=== PATIENT | male | born 1940 | race Caucasian/White ===

== ENCOUNTER 2020-04-02 09:50 | Outpatient (CLI) | payer MEDICARE, OTHER, SELFPAY ==
--- NOTE | 2020-04-02 | CT_ITS ---
WS: [id number] CT neck w con* [id number] REASON FOR EXAM: SWELLING / NECK MASS IV CONTRAST ADMINISTERED: Omnipaque 300, 95 mL TOTAL EXAM DLP: All CT scans at [facility] use at least one of these dose optimization techniques: automat ed exposure control; mA and/or kV adjustment per patient size (includes targeted exams where dose is matched to clinical indication); or iterative reconstruction. FINDINGS: The paranasal sinuses were normal. The parotids as well as submaxillary glands show normal appearance. Along the left subcutaneous area is a cystic mass measures 8.98 mm and appears to be a subcutaneous c yst. The submiddle area was normal. No definite masses in the mandible were seen. The submandibular space appear to be normal. The carotid space was normal with no masses. The parapharyngeal and nasopharyngeal regions were normal. The tongue show no abnormalities. There is no gross lymphadenopathy seen or masses throughout the anterior compartment of the neck. The prevertebral space was normal. The supraglottic space was normal as well as the infraglottic region and the larynx show no masses. The right and left lobes of the thyroid were normal. No lymphadenopathy is seen. The supra clavicular area showed no masses. CT/CT neck w con* [id number] IMPRESSION: A small cystic appearing subcutaneous lesion is seen overriding the lobe of the left ear ,This appears to be a sebaceous cyst.
[2020-04-02 10:53] LABS: Blood Urea Nitrogen 13 mg/dL (8-23)
[2020-04-02] MEDS: iodixanol 320 mg/mL 100mL Btl IV (11:09)
== END 2020-04-02 09:51 | disposition home or self-care (01) ==
PROVIDERS: PCP Registered Nurse; Visit Provider Specialist
DX: R22.1 Localized swelling, mass and lump, neck (principal); K13.0 Diseases of lips
CPT/HCPCS: 70491; 82565; 84520; Q9967

== ENCOUNTER → 2021-03-09 09:20 | Outpatient (BNVA) | payer MEDICARE, OTHER, SELFPAY | PROVIDERS: PCP Registered Nurse; Visit Provider Registered Nurse | DX: Z00.00 Encounter for general adult medical examination without abnormal findings (principal); E78.5 Hyperlipidemia, unspecified; N40.0 Benign prostatic hyperplasia without lower urinary tract symptoms; K21.9 Gastro-esophageal reflux disease without esophagitis; I10 Essential (primary) hypertension; G47.00 Insomnia, unspecified | CPT/HCPCS: 80053; 80061; 83721; 84153; 85025 ==

== ENCOUNTER → 2021-11-07 11:44 | Outpatient (BNVA) | payer MEDICARE, SELFPAY | PROVIDERS: PCP Registered Nurse; Visit Provider Registered Nurse | DX: I10 Essential (primary) hypertension (principal) | CPT/HCPCS: 80053; 85025 ==

== ENCOUNTER 2022-01-18 09:44 | Outpatient (CLI) | payer MEDICARE, SELFPAY ==
--- NOTE | 2022-01-18 10:00 | USCV_ITS ---
Mendoza Montiel Age: 81 Gender: M : 1940 Exam Date: 01/18/2022 10:46 Ordering Phys: Eugene Patel M.D ([email or web address]) Technologist: Flaquito Nicole Exam Location: [facility] – [place] Indication: sob BP: 178 / 73 HR: 67 Rhythm: Sinus Technical Quality: Adequate MEASUREMENTS (Male / Female) Normal Values 2D ECHO LV Diastolic Diameter PLAX 4.3 cm 4.2 - 5.9 / 3.9 - 5.3 cm LV Systolic Diameter PLAX 3.2 cm IVS Diastolic Thickness 1.0 cm 0.6 - 1.0 / 0.6 - 0.9 cm IVS Systolic Thickness 1.3 cm LVPW Diastolic Thickness 1.0 cm 0.6 - 1.0 / 0.6 - 0.9 cm LVPW Systolic Thickness 1.3 cm LVOT Diameter 2.0 cm LV Ejection Fraction 2D Teich 50.0 % LV Ejection Fraction MOD 2C 54.9 % LV Ejection Fraction 2C AL 55.1 % LA Diameter 3.1 cm LA Width 2.6 cm LA Height 4.1 cm RA Width 3.0 cm RA Height 3.8 cm Aorta at Sinotubular Diameter 2.6 cm M-MODE Aortic Annulus Diameter 3.6 cm LA Ao Ratio MM 0.8 MV E Point Septal Separation 0.5 cm DOPPLER AV Peak Velocity 191.0 cm/s LVOT Peak Velocity 91.0 cm/s AV Area Cont Eq vti 1.9 cm squared AV Area Cont Eq pk 1.5 cm squared MV Area PHT 4.0 cm squared Mitral E to A Ratio 0.8 MV E' Velocity 51.0 cm/s Mitral E to MV E' Ratio 9.2 Mitral E to LV E' Lateral Ratio 7.7 Mitral E to LV E' Septal Ratio 11.5 TR Peak Velocity 259.9 cm/s TR Peak Gradient 27.0 mmHg TR Mean Velocity 202.3 cm/s TR Mean Gradient 17.2 mmHg TR Velocity Time Integral 64.9 cm RV Acceleration Time 0.1 s RV Ejection Time 0.2 s RV AcT/ET 0.4 FINDINGS Left Ventricle Normal left ventricular size, systolic function and wall thickness, with no regional wall motion abnormalities. Grade 1 diastolic dysfunction Right Ventricle The right ventricle is normal in size and function. Right Atrium The right atrium is normal in size. Left Atrium The left atrium is normal in size. Mitral Valve Structurally normal mitral valve without significant stenosis or prolapse. There is mild to moderate mitral regurgitation. Aortic Valve Aortic valve is thickened and calcified. Mild aortic stenosis with mean gradient across aortic valve of 8 mmHg and aortic valve area of 1.8 cm squared. No significant aortic regurgitation seen Tricuspid Valve Structurally normal tricuspid valve without significant stenosis. Mild regurgitation. Pulmonary artery systolic pressure is normal. Pulmonic Valve Structurally normal pulmonic valve without significant stenosis. There is no pulmonic regurgitation. Pericardium Normal pericardium without effusion. Aorta Normal ascending aorta dimension. CONCLUSIONS LV systolic function is normal with EF of 55-60% Grade 1 diastolic dysfunction Mild to moderate mitral regurgitation Aortic valve is thickened and calcified. Mild aortic stenosis with mean gradient across aortic valve of 8 mmHg and aortic valve area of 1.8 cm squared. Mild tricuspid regurgitation No comparison studies are available Eugene Patel MD (Electronically Signed) Final Date: 27 January 2022 11:43 S
== END 2022-01-18 09:45 | disposition home or self-care (01) ==
PROVIDERS: PCP Registered Nurse; Visit Provider Internal Medicine
DX: R06.02 Shortness of breath (principal); R07.9 Chest pain, unspecified; I08.3 Combined rheumatic disorders of mitral, aortic and tricuspid valves
CPT/HCPCS: 93306

== ENCOUNTER 2022-01-18 09:44 | Outpatient (CLI) | payer MEDICARE, SELFPAY ==
--- NOTE | 2022-01-18 10:45 | USCV_ITS ---
FredaMendoza quintanilla Age: 81 Gender: M : 1940 Exam Date: 01/18/2022 11:27 Ordering Phys: Ena RochaP PLASMA CENTER TECHNICIAN Technologist: Flaqutio Nicole [place] [facility] [place]: polyneuropathy Risk Factors: Previous Vascular Surgery: RIGHT LEFT BP: 171.0 / 79.00 BP: 154.0/ 71.00 0 0 Waveform Velocity (cm/s) Velocity (cm/s) Waveform Triphasic 88.1 Iliac Prox 69.8 Biphasic Biphasic 112.5 Iliac Mid 72.4 Biphasic Biphasic 113.6 Iliac Distal 100.9 Biphasic Biphasic 87.8 CYBER SECURITY SYSTEMS ENGINEER 94.7 Biphasic Biphasic 87.0 SFA Prox 88.4 Biphasic Biphasic 89.3 SFA Mid 71.8 Biphasic Biphasic SFA Dist Biphasic 97.9 61.4 Biphasic 74.6 POP 52.1 Biphasic POUNCER 308.7 Biphasic Biphasic 215.9 DPA 23.6 Biphasic 1.0 JOANA 1.1 FINDINGS Resting ABIs of 1.0 on the right and 1.1 on the left No Doppler flow signals in the right posterior tibial artery Elevated Doppler velocities in the right dorsalis pedis and left posterior tibial artery CONCLUSIONS 1. Normal resting ABIs bilaterally 2. 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 Elevated Doppler flow velocity, suggesting greater than 50% stenosis in the dorsalis pedis artery on the right side. 4. Abnormal Doppler flow velocity in the left posterior tibial artery suggesting greater than 50% stenosis Dr Ramos Erwin MD [facility] (Electronically Signed) Final Date: 20 January 2022 10:05 S
== END 2022-01-18 09:45 | disposition home or self-care (01) ==
PROVIDERS: PCP Registered Nurse; Visit Provider Registered Nurse
DX: G62.9 Polyneuropathy, unspecified (principal)
CPT/HCPCS: 93925

== ENCOUNTER → 2022-02-07 11:53 | Outpatient (BNVA) | payer MEDICARE, SELFPAY | PROVIDERS: PCP Registered Nurse; Visit Provider Internal Medicine | DX: I25.10 Atherosclerotic heart disease of native coronary artery without angina pectoris (principal); I10 Essential (primary) hypertension; Z95.1 Presence of aortocoronary bypass graft; Z79.82 Long term (current) use of aspirin; Z87.891 Personal history of nicotine dependence | CPT/HCPCS: 80048; 99214 ==

== ENCOUNTER → 2022-06-21 08:56 | Outpatient (BNVA) | payer MEDICARE, SELFPAY | PROVIDERS: PCP Registered Nurse; Visit Provider Registered Nurse | DX: I10 Essential (primary) hypertension (principal) | CPT/HCPCS: 80053; 80061; 81000; 85025 ==

== ENCOUNTER → 2022-06-26 12:23 | Outpatient (BNVA) | payer MEDICARE, SELFPAY | PROVIDERS: PCP Registered Nurse; Visit Provider Internal Medicine Cardiovascular Disease | DX: R42 Dizziness and giddiness (principal); I70.201 Unspecified atherosclerosis of native arteries of extremities, right leg; I25.10 Atherosclerotic heart disease of native coronary artery without angina pectoris; Z95.1 Presence of aortocoronary bypass graft; I10 Essential (primary) hypertension | CPT/HCPCS: 93225; 99213 ==

== ENCOUNTER 2022-07-11 06:00 | Outpatient (RCR) | payer MEDICARE, SELFPAY | END 2022-07-14 23:59 | disposition home or self-care (01) | LOC: SPT 06:00 | PROVIDERS: PCP Registered Nurse; Visit Provider Registered Nurse | DX: H81.10 Benign paroxysmal vertigo, unspecified ear (principal) | CPT/HCPCS: 95992; 97162 ==

== ENCOUNTER 2022-07-17 16:30 | Outpatient (CLI) | payer MEDICARE, SELFPAY ==
--- NOTE | 2022-07-17 17:00 | CT_ITS ---
WS: [id number] CT HEAD NONCONTRAST HISTORY: R42 - Dizziness and giddiness TECHNIQUE: Contiguous axial imaging performed through the brain in 2.5 mm imaging. Bone and soft tiss ue windows. Sagittal and coronal reformats reviewed. All CT scans at [facility] use at least one of these dose optimization techniques: automated exposure control; mA and/or kV adjustment per pa tient size (includes targeted exams where dose is matched to clinical indication); or iterative recon struction. DLP: 1075.78 mGy.cm COMPARISON: None available. No acute intracranial hemorrhage, midline shift or mass effect. Mild atrophy and moderate small vessel ischemic disease. Small vessel ischemic disease is confluent a round the ventricles and throughout the white matter. There are lacunar infarcts in the external cap sules bilaterally. Prior lacunar infarct RIGHT caudate head. Ventricles: Normal size with no hydrocephalus. Paranasal sinuses: As visualized are clear. Mastoid air cells: Well pneumatized. Calvarium and scalp: Skull is intact with no soft tissue edema or swelling. Small amount of cerumen in the RIGHT external auditory canal. CT/CT head wo con* [id number] IMPRESSION: 1. No acute intracranial hemorrhage or edema. 2. Mild atrophy with moderate small vessel ischemic changes and small lacunar infarcts as above.
== END 2022-07-17 16:31 | disposition home or self-care (01) ==
PROVIDERS: PCP Registered Nurse; Visit Provider Registered Nurse
DX: R42 Dizziness and giddiness (principal); G31.9 Degenerative disease of nervous system, unspecified; I67.82 Cerebral ischemia; I63.81 Other cerebral infarction due to occlusion or stenosis of small artery
CPT/HCPCS: 70450

== ENCOUNTER → 2022-09-19 12:43 | Outpatient (BNVA) | payer MEDICARE, SELFPAY | PROVIDERS: PCP Registered Nurse; Visit Provider Internal Medicine | DX: I10 Essential (primary) hypertension (principal); I25.10 Atherosclerotic heart disease of native coronary artery without angina pectoris; Z95.1 Presence of aortocoronary bypass graft; Z87.891 Personal history of nicotine dependence | CPT/HCPCS: 99214 ==

== ENCOUNTER 2022-12-01 13:29 | Outpatient (CLI) | payer MEDICARE, SELFPAY ==
--- NOTE | 2022-12-01 13:30 | USCV_ITS ---
Mendoza Montiel Age: 82 Gender: M : 1940 Exam Date: 12/01/2022 13:45 Ordering Phys: Eugene Patel M.D ([email or web address]) Technologist: Exam Location: [facility] – [place] Indication: HX CAD MR BP: 130 / 80 HR: 51 Rhythm: Sinus Technical Quality: Good MEASUREMENTS (Male / Female) Normal Values 2D ECHO LV Diastolic Diameter PLAX 5.2 cm 4.2 - 5.9 / 3.9 - 5.3 cm LV Systolic Diameter PLAX 2.8 cm IVS Diastolic Thickness 0.9 cm 0.6 - 1.0 / 0.6 - 0.9 cm IVS Systolic Thickness 1.2 cm LVPW Diastolic Thickness 1.2 cm 0.6 - 1.0 / 0.6 - 0.9 cm LVPW Systolic Thickness 1.2 cm LVOT Diameter 2.0 cm LV Ejection Fraction 2D Teich 73.2 % LV Ejection Fraction MOD 2C 62.2 % LV Ejection Fraction 2C AL 60.9 % LA Diameter 4.1 cm IVC Diameter 3.1 cm M-MODE Aortic Annulus Diameter 3.7 cm LA Ao Ratio MM 1.0 MV E Point Septal Separation 1.2 cm DOPPLER AV Peak Velocity 262.7 cm/s LVOT Peak Velocity 89.0 cm/s AV Area Cont Eq vti 1.1 cm squared AV Area Cont Eq pk 1.1 cm squared MV E' Velocity 12.0 cm/s TR Peak Velocity 321.3 cm/s TR Peak Gradient 41.3 mmHg TV Peak E Velocity 97.0 cm/s Right Atrial Pressure 3.0 mmHg Pulmonary Artery Systolic Pressu 44.3 mmHg RV Acceleration Time 0.2 s FINDINGS Left Ventricle Left ventricle is normal in size. LV systolic function is normal with EF of 55-60%. No regional wall motion abnormalities are seen. Right Ventricle Normal in size and function Right Atrium Normal in size Left Atrium Normal in size Mitral Valve Structurally normal mitral valve. Moderate to severe mitral regurgitation. Aortic Valve Aortic valve is thickened and calcified. Mild aortic stenosis with aortic valve area of 1.05 cm2 with mean gradient of 12.5 mmHg across aortic valve. Tricuspid Valve Mild tricuspid regurgitation. RVSP is 45-50 mmHg. This is consistent with moderate pulmonary hypertension. Pulmonic Valve Not well-visualized. Mild pulmonic regurgitation. Pericardium Normal Aorta Normal size IVC Appears to be normal CONCLUSIONS LV systolic function is normal with EF of 55 to 60%. Moderate to severe mitral regurgitation Aortic valve is thickened and calcified. Mild aortic stenosis. Mild tricuspid regurgitation Moderate pulmonary hypertension Mild pulmonic regurgitation Compared to prior echocardiogram from 01/18/2022, mitral regurgitation has worsened and is moderate to severe now and patient has moderate pulmonary hypertension. Eugene Patel MD (Electronically Signed) Final Date: 02 December 2022 13:13 S
== END 2022-12-01 13:30 | disposition home or self-care (01) ==
PROVIDERS: PCP Registered Nurse; Visit Provider Internal Medicine
DX: R06.02 Shortness of breath (principal); R07.9 Chest pain, unspecified; I35.0 Nonrheumatic aortic (valve) stenosis; I27.20 Pulmonary hypertension, unspecified; I07.1 Rheumatic tricuspid insufficiency; I34.0 Nonrheumatic mitral (valve) insufficiency
CPT/HCPCS: 93306

== ENCOUNTER → 2022-12-28 07:59 | Outpatient (BNVA) | payer MEDICARE, SELFPAY | PROVIDERS: PCP Registered Nurse; Visit Provider Thoracic Surgery (Cardiothoracic Vascular Surgery) | DX: I34.0 Nonrheumatic mitral (valve) insufficiency (principal); Z87.891 Personal history of nicotine dependence | CPT/HCPCS: 99203 ==

== ENCOUNTER → 2023-05-07 10:37 | Outpatient (BNVA) | payer MEDICARE, SELFPAY | PROVIDERS: PCP Registered Nurse; Visit Provider Podiatrist Foot & Ankle Surgery | DX: G62.9 Polyneuropathy, unspecified (principal); M79.671 Pain in right foot; M79.672 Pain in left foot | CPT/HCPCS: 73630; 99204 ==

== ENCOUNTER 2023-06-05 11:57 | Outpatient (CLI) | payer MEDICARE, SELFPAY ==
--- NOTE | 2023-06-05 12:15 | USCV_ITS ---
Mendoza Montiel Age: 83 Gender: M : 1940 Exam Date: 06/05/2023 12:35 Ordering Phys: Eugene Patel M.D ([email or web address]) Technologist: Eleonora Luevano [place] [facility] [place]: MR BP: / HR: 57 Rhythm: Sinus Technical Quality: Adequate MEASUREMENTS (Male / Female) Normal Values 2D ECHO LV Chamber Size 3.6 cm RV Chamber Size 3.0 cm LVOT Diameter 2.1 cm LV Ejection Fraction MOD 2C 58.7 % LV Ejection Fraction 2C AL 58.7 % LA Diameter 3.9 cm LA Width 3.4 cm LA Height 4.0 cm RA Width 2.4 cm RA Height 4.0 cm Aorta at Sinotubular Diameter 3.0 cm IVC Diameter 1.3 cm M-MODE Aortic Annulus Diameter 3.1 cm LA Ao Ratio MM 1.3 MV E Point Septal Separation 0.4 cm DOPPLER AV Peak Velocity 187.0 cm/s LVOT Peak Velocity 91.0 cm/s AV Area Cont Eq vti 1.6 cm squared AV Area Cont Eq pk 1.7 cm squared MV Area PHT 2.0 cm squared Mitral E to A Ratio 0.8 MV E' Velocity 44.0 cm/s Mitral E to MV E' Ratio 8.6 Mitral E to LV E' Lateral Ratio 8.2 Mitral E to LV E' Septal Ratio 8.9 TR Peak Velocity 270.3 cm/s TR Peak Gradient 29.2 mmHg TR Mean Velocity 200.6 cm/s TR Mean Gradient 17.8 mmHg TR Velocity Time Integral 73.5 cm TV Peak E Velocity 64.0 cm/s Right Atrial Pressure 3.0 mmHg Pulmonary Artery Systolic Pressu 32.2 mmHg RV Acceleration Time 0.1 s RV Ejection Time 0.3 s RV AcT/ET 0.4 FINDINGS Left Ventricle Left ventricle is normal size. LV systolic function is normal with EF of 55-60%. No regional wall motion abnormalities are seen. Grade 1 diastolic dysfunction Right Ventricle Normal in size and function Right Atrium Normal in size Left Atrium Normal in size Mitral Valve Structurally normal mitral valve. Moderate mitral regurgitation. Aortic Valve Aortic valve is thickened and calcified. Mild aortic stenosis with aortic valve area of 1.58cm2 and mean gradient across aortic valve of 8.3mmHg. Tricuspid Valve Mild tricuspid regurgitation. Pulmonary artery systolic pressure is normal Pulmonic Valve Not well visualized Pericardium Normal Aorta Normal in size IVC Appears to be normal CONCLUSIONS LV systolic function is normal with EF of 55-60% Grade 1 diastolic dysfunction Moderate mitral regurgitation Mild aortic stenosis Mild tricuspid regurgitation. Compared to prior echocardiogram from 12/21/2022, no significant changes are seen Eugene Patel MD (Electronically Signed) Final Date: 18 June 2023 11:30 S
== END 2023-06-05 11:58 | disposition home or self-care (01) ==
PROVIDERS: PCP Registered Nurse; Visit Provider Internal Medicine
DX: R06.02 Shortness of breath (principal); R07.9 Chest pain, unspecified; I34.0 Nonrheumatic mitral (valve) insufficiency; I35.8 Other nonrheumatic aortic valve disorders; I35.0 Nonrheumatic aortic (valve) stenosis; I07.1 Rheumatic tricuspid insufficiency; I27.20 Pulmonary hypertension, unspecified; I37.1 Nonrheumatic pulmonary valve insufficiency
CPT/HCPCS: 93306

== ENCOUNTER → 2023-06-19 13:39 | Outpatient (BNVA) | payer MEDICARE, SELFPAY | PROVIDERS: PCP Registered Nurse; Visit Provider Internal Medicine | DX: I10 Essential (primary) hypertension (principal); I25.10 Atherosclerotic heart disease of native coronary artery without angina pectoris; Z95.1 Presence of aortocoronary bypass graft; Z87.891 Personal history of nicotine dependence | CPT/HCPCS: 99214 ==

== ENCOUNTER → 2023-10-15 13:13 | Outpatient (BNVA) | payer MEDICARE, SELFPAY | PROVIDERS: PCP Registered Nurse; Visit Provider Podiatrist Foot & Ankle Surgery | DX: G57.93 Unspecified mononeuropathy of bilateral lower limbs; G62.9 Polyneuropathy, unspecified; M79.671 Pain in right foot; M79.672 Pain in left foot | CPT/HCPCS: 99213 ==

== ENCOUNTER → 2023-11-20 09:55 | Outpatient (BNVA) | payer MEDICARE, SELFPAY | PROVIDERS: PCP Registered Nurse; Visit Provider Registered Nurse | DX: I10 Essential (primary) hypertension (principal); E78.5 Hyperlipidemia, unspecified; E55.9 Vitamin D deficiency, unspecified; E11.9 Type 2 diabetes mellitus without complications; N39.0 Urinary tract infection, site not specified; Z00.00 Encounter for general adult medical examination without abnormal findings; A49.9 Bacterial infection, unspecified; G57.90 Unspecified mononeuropathy of unspecified lower limb | CPT/HCPCS: 80053; 80061; 81000; 82306; 85025; 87086 ==

== ENCOUNTER 2024-02-06 11:14 | Outpatient (CLI) | payer MEDICARE, SELFPAY ==
--- NOTE | 2024-02-06 12:00 | USCV_ITS ---
Mendoza Montiel Age: 83 Gender: M : 1940 Exam Date: 02/06/2024 11:50 Ordering Phys: Eugene Patel M.D ([email or web address]) Technologist: GUANAKITO [place] [facility] [place]ication: AORTIC STENOSIS BP: 137 / 68 HR: 66 Rhythm: Sinus Technical Quality: Adequate MEASUREMENTS (Male / Female) Normal Values 2D ECHO LV Diastolic Diameter PLAX 4.8 cm 4.2 - 5.9 / 3.9 - 5.3 cm IVS Diastolic Thickness 1.0 cm 0.6 - 1.0 / 0.6 - 0.9 cm IVS Systolic Thickness 1.6 cm LVPW Diastolic Thickness 1.8 cm 0.6 - 1.0 / 0.6 - 0.9 cm LVPW Systolic Thickness 2.8 cm LVOT Diameter 2.0 cm LV Ejection Fraction 2D Teich 68.3 % LV Ejection Fraction MOD 2C 54.5 % LV Ejection Fraction 2C AL 55.8 % LA Diameter 4.0 cm RA Systolic Volume 4C AL 30.7 ml RA Systolic Volume 4C MOD 30.1 ml LA Sys Volume AL 21.1 cm cubed Aorta at Sinotubular Diameter 2.5 cm M-MODE LA Ao Ratio MM 0.8 AV Cusp Separation MM 1.0 cm DOPPLER AV Peak Velocity 192.0 cm/s LVOT Peak Velocity 68.0 cm/s AV Area Cont Eq vti 1.2 cm squared AV Area Cont Eq pk 1.1 cm squared MV Peak Velocity 115.0 cm/s MV Area PHT 3.7 cm squared Mitral E to A Ratio 0.7 TR Peak Velocity 260.5 cm/s TR Peak Gradient 27.1 mmHg TR Mean Velocity 205.0 cm/s TR Mean Gradient 19.2 mmHg TR Velocity Time Integral 75.8 cm TV Peak E Velocity 46.0 cm/s Right Atrial Pressure 3.0 mmHg Pulmonary Artery Systolic Pressu 30.1 mmHg PV Peak Velocity 86.0 cm/s RV Ejection Time 0.3 s FINDINGS Left Ventricle Left ventricle is normal in size. LV systolic function is normal with EF of 50-55%. No regional wall motion abnormalities are seen. Right Ventricle Normal in size and function Right Atrium Normal in size Left Atrium Normal in size Mitral Valve Structurally normal mitral valve. Moderate mitral regurgitation. Aortic Valve Aortic valve is thickened. Mild aortic stenosis with aortic valve area 1.2 cm squared and mean gradient of 10 mmHg. Tricuspid Valve Mild tricuspid regurgitation. Pulmonary artery systolic pressure is normal. Pulmonic Valve Trace pulmonic regurgitation. Pericardium Normal Aorta Normal in size IVC Appears to be normal CONCLUSIONS LV systolic function is normal with EF 50-55% Moderate mitral regurgitation Mild aortic stenosis. Mild tricuspid regurgitation Trace pulmonic regurgitation Compared to prior echocardiogram from 05/2023 no significant changes are seen Eugene Patel MD (Electronically Signed) Final Date: 09 February 2024 22:42 S
== END 2024-02-06 11:15 | disposition home or self-care (01) ==
LOC: RAD 11:17
PROVIDERS: PCP Registered Nurse; Visit Provider Internal Medicine
DX: I08.3 Combined rheumatic disorders of mitral, aortic and tricuspid valves (principal)
CPT/HCPCS: 93306

== ENCOUNTER → 2024-03-18 12:21 | Outpatient (BNVA) | payer MEDICARE, SELFPAY | PROVIDERS: PCP Registered Nurse; Visit Provider Internal Medicine | DX: I10 Essential (primary) hypertension (principal); M79.606 Pain in leg, unspecified; R07.9 Chest pain, unspecified; I25.10 Atherosclerotic heart disease of native coronary artery without angina pectoris; Z95.1 Presence of aortocoronary bypass graft; Z87.891 Personal history of nicotine dependence | CPT/HCPCS: 99214 ==

== ENCOUNTER 2024-04-21 08:31 | Outpatient (CLI) | payer MEDICARE, SELFPAY ==
--- NOTE | 2024-04-21 | ECG_ITS ---
[facility] Test Date: 2024-04-21 Pat Name: Mendoza Montiel Department: Room: Gender: Male Day Care Assistant: : 1940 Requested By: Eugene Patel Order Number: [id number] Maura MD: Ramos Erwin M.D. 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 The baseline heart was 60 bpm with a blood pressue of 178/71 mm of Hg Lexiscan was infused over a period of 20 seconds. A total of 0.4 milligrams of Lexiscan was infused. The stress phase was continued for a total of 5 minutes. Heart rate at the end of the stress phase was 71 bpm with a blood pressure 146/67 mm of Hg. The EKG at the peak infusion revealed some nonspecific ST changes in the inferior and anterolateral leads.. Sestamibi was injected 20 seconds after the Lexiscan infusion. Heart rate at the end of the recovery phase was 74 bpm with a blood pressure of 143/58 mm of Hg. CONCLUSION: 1. No significant EKG changes with the LexiScan infusion 2. No LexiScan induced chest pain or cardiac arrhythmia 3. Normal blood pressure and heart rate response 4. Sestamibi/sestamibi perfusion scan pending; see separate report. Electronically Signed On 04-26-2024 13:56:33 CDT by Ramos Erwin M.D. [id number]
[2024-04-21 08:51] VITALS: BMI 22.8
--- NOTE | 2024-04-21 09:01 | NMCV_ITS ---
NM tahir perf SPECT r/s* [id number] Mendoza Montiel Age: 84 Gender: M : 1940 Exam Date: 04/21/2024 09:01 Ordering Phys: Eugene Patel M.D ([email or web address]) Technologist: ADELSO Saleem Exam Location: [facility] Indications: CP, SOB STRESS TEST Please see separate stress test report [facility] for full findings IMAGE PROTOCOL Rest/Stress 1 Lexiscan Day Radiopharmaceutical Dose (mCi) Administration Site Administered by Rest: Tc-99m 11.0 IV ADELSO aSleem Sestamibi Stress:Tc-99m 32.8 IV ADELSO Saleem Sestamibi Rest: 21-Apr-2024 60 Discovery 630 Stress: 21-Apr-2024 30 Discovery 630 0.4mg Lexiscan. Images obtained in supine and prone position. SPECT RESULTS Technical Quality: Good Raw Data Analysis: Normal Image Corrections: No attenuation or motion correction applied Summed Stress Score: 13 Summed Rest Score: 6 Summed Difference Score: 7 PERFUSION FINDINGS Moderate area of moderate to severely decreased tracer uptake involving the basal and mid inferior, inferolateral basal, mid and apical inferior; basal and mid inferolateral and apical lateral segments with a significant reversibility in these regions FUNCTIONAL RESULTS (calculated via Gated SPECT) Stress Image LV EF (%): 65 Stress EDV (mL):97 TID: 1.16 Stress ESV (mL):34 FUNCTIONAL FINDINGS: Segmental wall motion analysis revealing no gross wall motion abnormalities IMPRESSIONS 1. Myocardial perfusion imaging revealing moderate area of moderate to severely decreased tracer uptake involving the inferior, inferolateral and apical regions with a significant reversibility suggesting myocardial scarring with ischemia in distribution of the right coronary artery/circumflex artery. 2. Normal LV ejection fraction 65%. 3. LV wall motion analysis revealing no gross wall motion abnormalities. 4. Normal LV volume 5. Slightly elevated transient ischemic dilatation ratio 1.16 also may suggest endocardial ischemia No similar previous studies are available for comparison Dr Ramos Erwin MD [facility] (Electronically Signed) Final Date: 21 April 2024 22:17 S
[2024-04-21] MEDS: regadenoson 0.4 Mg/5 ml Syringe 0.400000000000000022 MG IVP (10:45)
[2024-04-21 11:02] VITALS: BP 148/65; PULSE 72
== END 2024-04-21 08:32 | disposition home or self-care (01) ==
PROVIDERS: PCP Registered Nurse; Visit Provider Internal Medicine
DX: R07.9 Chest pain, unspecified (principal); R06.02 Shortness of breath; R94.39 Abnormal result of other cardiovascular function study
CPT/HCPCS: 36415; 78452; 93017; 96374; A9500; J2785

== ENCOUNTER 2024-04-25 10:37 | Outpatient (CLI) | payer MEDICARE, SELFPAY ==
--- NOTE | 2024-04-25 11:15 | USCV_ITS ---
Mendoza Montiel Age: 84 Gender: M : 1940 Exam Date: 04/25/2024 10:44 Ordering Phys: Eugene Patel M.D ([email or web address]) Technologist: SCOTT Exam Location: [facility] [place] Indication: LEG PAIN Risk Factors: Previous Vascular Surgery: RIGHT LEFT BP: 155.0 / 66.00 BP: 146.0/ 63.00 0 0 Waveform Velocity (cm/s) Velocity (cm/s) Waveform Biphasic 94.7 Iliac Prox 77.3 Triphasic Biphasic 98.3 Iliac Mid 79.3 Triphasic Biphasic 109.4 Iliac Distal 71.6 Triphasic Biphasic 100.0 DIRECTOR OF FINANCIAL AID 154.0 Triphasic Biphasic 46.0 SFA Prox 118.0 Triphasic Biphasic 90.0 SFA Mid 131.0 Triphasic Biphasic 71.0 SFA Dist 115.0 Triphasic Biphasic 48.0 POP 61.0 Biphasic Biphasic 69.0 SIEVE REPAIRER 39.0 Biphasic Biphasic 128.0 DPA 117.0 Biphasic 1.2 JOANA 1.0 FINDINGS ABIs based on DPA bilat due to PTAs being noncompressible Minimal plaque send intimal thickening in the right common carotid iliac, femoral, and popliteal arteries. Mild to moderate plaque at the left common femoral artery intimal thickening and minimal plaques in the iliac, femoral./And popliteal arteries. Noncompressible dorsalis pedis arteries bilaterally Resting JOANA 1.2 on the right and 1.0 on the left CONCLUSIONS Normal resting ABIs with respect to the posterior tibial arteries bilaterally Noncompressible dorsalis pedis arteries bilaterally Mild to moderate plaque in the left common femoral artery with minimal plaque in the right common femoral artery Features of extensive arterial sclerosis No significant stenosis, based on the above findings Dr Ramos Erwin MD [facility] (Electronically Signed) Final Date: 25 April 2024 20:11 S
== END 2024-04-25 10:38 | disposition home or self-care (01) ==
LOC: RAD 10:38
PROVIDERS: PCP Registered Nurse; Visit Provider Internal Medicine
DX: I65.23 Occlusion and stenosis of bilateral carotid arteries (principal); I70.203 Unspecified atherosclerosis of native arteries of extremities, bilateral legs; M79.606 Pain in leg, unspecified
CPT/HCPCS: 93925

== ENCOUNTER 2024-05-08 08:46 | Outpatient (CLI) | payer MEDICARE, SELFPAY ==
--- NOTE | 2024-05-08 09:00 | XACV_ITS ---
Exam Room: 2 Ht: 180 cm Wt: 74 kg BSA: 1.93 m2 Gender: Male : 1940 Any Known Allergies: No known allergies Exam Priority: Routine Procedure(s): Procedure Description: Diagnostic procedure Procedure Description: Left Heart Catheterization Procedure Description: Left ventriculography Procedure Description: Venous Graft Catheterization Procedure Description: JAMES Graft Catheterization Procedure Description: Coronary Angiography Diagnostic Cath Status: Elective Diagnostic Findings * INDICATION: 84 year old man with PMH of hypertension, CAD s/p CABG, who has been having chest pain CCS class III angina and abnormal stress test is here for coronary angiogram. * Left Main to Proximal Left Anterior Descending: subtotal occlusion, GARCÍA: 1 flow. * Proximal Left Anterior Descending: chronic total occlusion, GARCÍA: 0 flow. * Proximal Right Coronary Artery: chronic total occlusion, GARCÍA: 0 flow. * BYPASS Grafts: SVG to RCA is patent however after touchdown, there is diffuse severe disease. SVG to OM is patent. After touchdown there is moderate disease in the habematolel vessel. JAMES to LAD is patent. At touchdown there is mild to moderate disease.. * Proximal Circumflex: total occlusion, GARCÍA: 0 flow. Conclusions 1. Severe multivessel CAD. SVG to RCA is patent but after touchdown has severe diffuse disease. This is the culprit vessel for patient's symptoms. 2. Patient has prior CABG. 3. Normal left ventricular systolic function. Ejection fraction of 55%. Recommendations * Aggressive medical therapy and up-titration of antianginal agents. * Risk factor modification. * Outpatient cardiology follow up in 4 weeks. Interventional RX Recommendation: medical therapy and/or counseling Diagnostic RX Recommendation: medical therapy and/or counseling Ventriculography Ejection Fraction: 55.0 % Pressures Phase:Rest AO : 130 / 78 ( 103 ) @ 12:02:00 PM 120 / 75 ( 97 ) @ 12:04:00 PM 161 / 55 ( 96 ) @ 12:12:00 PM 163 / 57 ( 96 ) @ 12:12:00 PM LV : 160 / -21 / 13 @ 12:11:00 PM 158 / -20 / 15 @ 12:12:00 PM 158 / -19 / 15 @ 12:12:00 PM Valves Phase:DefaultPhase AV : 0.0 @ 11:21:47 AM AV Mean Gradient: 0.0 @ 11:21:47 AM 0.0 @ 11:21:47 AM Clinical Evaluation EBL: 5mL-10mL Procedural Details Pre-Procedure Time Out. Identified patient by full name and date of as verbalized by the patient/guarantor. Does the consent match the physician's order: Yes. Accurate & Complete Informed Consent: Yes. Inpatient/Outpatient History & Physical on Chart: Yes. If H&P is completed, is and addenduem needed: No; If yes, is the addendum complete: N/A. Relevant Radiology Images available: Yes. Visualize and Verify Site with Patient/Guarantor: N/A. Pre-op teaching completed and patient verbalized understanding. The risks, benefits, and alternatives of sedation and/or procedure were discussed by physician. The patient agrees to continue. Procedure started. [facility] Clinical Fraility Score: 3: Managing Well. 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 Chest Pain Symptom Assessment: Typical Angina Symptoms. Physician arrived. Physician scrubbed in. Immediate Pre-Procedure Time Out. Correct Patient: Yes; Correct Procedure: Yes; Correct Site: Yes; Correct Patient Position: Yes; Correct Supplies: Yes; Dried Flammable Prep: Yes; Blood Products Available: Yes;. Lidocaine 1% infiltrated to the right groin. Current Diagnosis : Chest Pain. Arterial access obtained with micropuncture set. A 5 anguillan JL4 catheter in over wire. Multiple views taken of left coronary artery. Catheter removed over the standard wire. A 5 anguillan JR4 catheter in over wire. Multiple views taken of right coronary artery. SVG's to OM visualized and patent. SVG's to RCA visualized and patent. JAMES to LAD visualized. Catheter removed over the standard wire. A 5 anguillan Angled Pig catheter in over wire. EDP Sample taken: LV 160/-22,13; HR: 65 BPM; SpO2: 99%. LV gram performed in [place]Y @ 10 mL/second for a total of 30 mL. EDP Sample taken: LV 158/-21,15; HR: 63 BPM; SpO2: 100%. Pullback taken: LV 158/-20,15; AO 161/55(96); Mean: 0mmHg, Peak to Peak: 0mmHg, SEP: 14sec/min; HR: 64 BPM; SpO2: 100%. Catheter removed over the standard wire. A Right femoral angiogram was performed to determine safe placement of closure device. A Mynx was successful obtaining hemostatsis at the Right Femoral artery insertion site. Post Procedure: Pulses reassessed and unchanged. PERRLA. 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 No VTE prophylaxis required. Medication's Wasted: Lidocaine 1% = 10 mL. Medication's Wasted: Heparin = 1000 units. Medication's Wasted: Other = Fentanyl 75 mcg. Total IV fluids: 30 mL. Vital chart was stopped. Complications: None. Estimated blood loss: 5mL-10mL. Responsiveness - Normal response to verbal stimuli; alert and oriented, PERRLA. Airway - Unaffected, no intervention required; spontaneous ventilation. Circulation: W/N/L, pulses unchanged. Nausea/Vomiting: No. Procedure completed. Patient transferred by bed to CPRU. Access Site Site: Right Femoral artery Sheath Size: 6 Fr Hemostasis Method: Mynx Hemostasis Success: Successful Procedure Medications Start: 10:53 AM Stop: 10:53 AM Medication: Versed 1 mg and Fentanyl 25 mcg Amount: 1 Route: I.V. Start: 11:00 AM Stop: 11:00 AM Medication: Versed Amount: 1 mg Route: I.V. I, the attending physician, have reviewed and verified all procedure medications. Yes, all medications given per verbal order History/Risk Factors Hypertension: Yes Dyslipidemia: Yes Peripheral Arterial Disease (PAD): No Myocardial Infarction (MN): No Obesity: No Renal Disease: No Tobacco Use: Former Prior Interventions PCI: No CABG: Yes Valve Surgery: No Report Signatures Finalized by Eugene Patel MD on 05/22/2024 05:47 PM
[2024-05-08 09:15] VITALS: BP 166/74; PULSE 76; RESP 16; TEMP 36.7; O2SAT 99; BMI 22.8
[2024-05-08 09:17] LABS: Basophils # 0.1 10^3/uL (0.0-0.1); Eosinophils # 0.5 10^3/uL (0.0-0.8); Eosinophils % 5.6 %; Hematocrit 44.6 % (37-53); Lymphocytes # 2.5 10^3/uL (0.8-4.8); Lymphocytes % 28.3 %; Mean Corpuscular HGB Conc 34.1 g/dL (30-55); Mean Corpuscular Hemoglobin 31.6 pg (27-33); Mean Corpuscular Volume 92.7 fl (82-101); Mean Platelet Volume 9.9 fL (7.4-10.4); Monocytes # 0.9 10^3/uL (0.2-0.9); Monocytes % 10.5 %; Neutrophils # 4.83 10^3/uL (1.8-7.7); Neutrophils % 54.3 %; Nucleated Red Blood Cells % 0 %; Platelet Count 233 10^3/cmm (157-399); Red Blood Count 4.81 10^6/uL (3.85-5.65); Red Cell Distribution Width 12.8 % (12.1-15.1); White Blood Count 8.91 10^3/uL (3.29-11.43)
[2024-05-08] MEDS: diphenhydrAMINE 50 mg Capsule PO (09:24)
[2024-05-08 09:35] LABS: Anion Gap 13.7 (5-19); Blood Urea Nitrogen 18 mg/dL (8-23); Calcium 9.3 mg/dL (8.5-10.5); Carbon Dioxide 29 mmol/L (22-29); Chloride 104 mmol/L (98-107); Creatinine Clr Calc Pharmacy 65.9156; Glucose 122 mg/dL (65-115); Osmolality Calculated 299 mOsm/kg (285-295); Potassium 3.7 mmol/L (3.5-5.1); Sodium 143 mmol/L (136-145)
--- NOTE | 2024-05-08 10:52 | P.HP_ITS ---
Same Day Surgery H&P Indication for Procedure/HPI DATE OF PROCEDURE: May 08, 2024 CHIEF COMPLAINT/INDICATIONFOR SURGICAL PROCEDURE: CCS Class III angina/Abnormal stress test PREOP DIAGNOSIS: CCS Class III angina/Abnormal stress test PLANNED PROCEDURE: Operation Date: 05/08/24 10:00 Proposed Procedures p Cardiac Catheterization - [facility] w/wo LV & Coros(Left) - Eugene Patel M.D Possible PCI 84 year old man with PMH of hypertension, CAD s/p CABG, who has been having chest pain CCS class III angina and abnormal stress test is here for coronary angiogram. Medications/Allergies* Home Medications Medication Instructions Recorded Confirmed Type aspirin 81 mg tablet,delayed 81 mg PO DAILY 12/24/19 05/07/24 History release (Adult Aspirin Regimen) Allergies/Adverse Reactions Allergy/AdvReac Type Severity Reaction Status Date / Time No Known Allergies Allergy Verified 05/07/24 11:16 Current Medications: Generic Name Dose Route Start Last Admin Trade Name Freq PRN Reason Stop Dose Admin Sodium Chloride 1,000 mls @ 50 mls/hr 05/08/24 09:00 05/08/24 09:25 Sodium Chloride 0.9% IV 05/09/24 04:59 Not Given .Q20H ONE Pertinent History/Comorbid Conditions* Medical History (Updated 05/06/24 @ 13:50 by GOKUL Wu) Wears hearing aid in both ears Hyperlipidemia, unspecified Hypothyroidism Dizziness Insomnia, unspecified GERD without esophagitis BPH (benign prostatic hyperplasia) Seasonal allergies Surgical History (Updated 05/03/23 @ 13:57 by GOKUL Kenney) History of tonsillectomy S/P triple vessel bypass 1997 Dr Linares Social History Smoking and tobacco/nicotine status: former use of tobacco/nicotine (stopped at age 46) Quit status (tobacco/nicotine): has quit using Year quit tobacco: 1979 Alcohol intake: never Substance/Drug Use: never Adopted: No Caregiver/support person: Yes Lives independently: No Household members: spouse Marital status: Current occupational status: retired Sexually active: Yes Do you think of yourself as: Straight/Heterosexual Current gender identity: Male Pertinent Exam Findings alert, oriented x 3, clear to auscultation bilaterally and regular rate & rhythm Conscious Sedation Assessment PATIENT ASSESSED PRIOR TO SEDATION, WITH NO CHANGE NOTED: Yes AIRWAY EVAL/ANESTHESIA PLAN: normal airway, ASA III, Local Anesthesia, Risks, benefits & alternatives of sedation and/or procedure discussed and Patient agrees to continue as planned Recommendations Surgery/Procedure today (Left heart cath with possible percutaneous coronary intervention) Coding Level of Care Code Acute Code for Chg Fwmi
[2024-05-08 14:43] VITALS: BP 146/60; PULSE 59; RESP 19; O2SAT 94
--- NOTE | 2024-05-08 18:31 | PC.NURSE ---
Discharge Note Patient discharged to home via POV accompanied by family. Discharge instructions reviewed with patient and/or arborist representative. Mobile pharmacy medications and/or prescriptions provided. Belongings/home medications returned.
[2024-05-08 18:32] VITALS: BP 146/60; PULSE 59; RESP 19; O2SAT 94
== END 2024-05-08 17:30 | disposition home or self-care (01) ==
LOC: CCL 08:53 → CSU 12:01
PROVIDERS: PCP Registered Nurse; Visit Provider Internal Medicine
DX: I25.10 Atherosclerotic heart disease of native coronary artery without angina pectoris (principal); Z95.1 Presence of aortocoronary bypass graft; I10 Essential (primary) hypertension; E78.5 Hyperlipidemia, unspecified; Z87.891 Personal history of nicotine dependence; Z79.82 Long term (current) use of aspirin; E03.9 Hypothyroidism, unspecified; N40.0 Benign prostatic hyperplasia without lower urinary tract symptoms; K21.9 Gastro-esophageal reflux disease without esophagitis
CPT/HCPCS: 36415; 80048; 85025; 93459; 96374; 96375; 99152; 99153; C1760; C1769; C1887; C1894; G0269; G0378; J1644; J2250; J3010; J7030; Q0163; Q9967

== ENCOUNTER → 2024-05-29 12:42 | Outpatient (BNVA) | payer MEDICARE, SELFPAY | PROVIDERS: PCP Registered Nurse; Visit Provider Nurse Practitioner Family | DX: I25.10 Atherosclerotic heart disease of native coronary artery without angina pectoris (principal); Z87.891 Personal history of nicotine dependence | CPT/HCPCS: 36415; 80048; 99214 ==

== ENCOUNTER 2024-06-19 12:31 | Outpatient (CLI) | payer MEDICARE, SELFPAY ==
--- NOTE | 2024-06-19 12:15 | MR_ITS ---
WS: [id number] MRI LUMBAR SPINE NONCONTRAST TECHNIQUE: Sagittal T1, T2 and STIR imaging. Axial T1 and T2 imaging. CLINICAL INFORMATION: G57.93 - Unspecified mononeuropathy of bilateral lower limbs COMPARISON: None. FINDINGS: Mild lumbar curve. No acute compression. Severe central canal stenosis L4-5. Recommend spine surgery consultation. L1-L2: Mild facet arthropathy. Spinal canal and foramen are patent. L2-L3: Mild facet arthropathy. Spinal canal and foramen are patent. L3-L4: Mild annular bulging with slight effacement of the ventral thecal sac. Moderate facet arthropa thy. Mild central canal stenosis. Mild bilateral foraminal narrowing. L4-L5: Grade 1 anterolisthesis with severe central canal stenosis. Impingement traversing L5 nerve r oots bilaterally. Advanced facet arthropathy with small facet effusions. Ligamentum flavum hypertroph y. Moderate LEFT and no significant RIGHT foraminal narrowing. L5-S1: Mild annular bulging. Advanced facet arthropathy. Tiny annular fissure. Spinal canal and craig en are patent. Visualized pelvic bony structures: Normal. Paravertebral soft tissues: Normal. LEFT renal cyst measuring 3.5 cm. Smaller bilateral renal cysts. MR/MR lumbar spine wo con* [id number] IMPRESSION: 1. Severe central canal stenosis L4-5. Recommend spine surgery consultation. 2. Mild central canal stenosis L3-4 with slight effacement of the ventral thec al sac. Mild bilateral foraminal narrowing at this level. 3. Moderate LEFT L4-5 foraminal narrowing. 4. Tiny annular fissure at L5-S1. 5. Moderate to advanced facet arthropathy L3-L5.
== END 2024-06-19 12:32 | disposition home or self-care (01) ==
LOC: RAD 12:31
PROVIDERS: PCP Registered Nurse; Visit Provider Registered Nurse
DX: M48.061 Spinal stenosis, lumbar region without neurogenic claudication (principal); M99.63 Osseous and subluxation stenosis of intervertebral foramina of lumbar region; M43.16 Spondylolisthesis, lumbar region; M47.896 Other spondylosis, lumbar region; G57.93 Unspecified mononeuropathy of bilateral lower limbs; M79.604 Pain in right leg; M79.605 Pain in left leg
CPT/HCPCS: 72148

== ENCOUNTER → 2024-09-30 09:33 | Outpatient (BNVA) | payer MEDICARE, SELFPAY | PROVIDERS: PCP Registered Nurse; Visit Provider Internal Medicine | DX: I10 Essential (primary) hypertension (principal); I25.10 Atherosclerotic heart disease of native coronary artery without angina pectoris; Z95.1 Presence of aortocoronary bypass graft; Z87.891 Personal history of nicotine dependence | CPT/HCPCS: 99214 ==

== ENCOUNTER → 2024-11-24 10:13 | Outpatient (BNVA) | payer MEDICARE, SELFPAY | PROVIDERS: PCP Registered Nurse; Visit Provider Registered Nurse | DX: I10 Essential (primary) hypertension (principal); Z13.1 Encounter for screening for diabetes mellitus | CPT/HCPCS: 80048; 80061; 83036; 85025 ==

== ENCOUNTER → 2024-12-08 14:34 | Outpatient (BNVA) | payer MEDICARE, SELFPAY | PROVIDERS: PCP Registered Nurse; Visit Provider Anesthesiology Pain Medicine | DX: M48.062 Spinal stenosis, lumbar region with neurogenic claudication (principal); M54.50 Low back pain, unspecified; G89.29 Other chronic pain | CPT/HCPCS: 99204 ==

== ENCOUNTER 2025-01-27 05:00 | Outpatient (RCR) | payer MEDICARE, SELFPAY | END 2025-02-25 23:59 | disposition home or self-care (01) | LOC: WPT 05:00 | PROVIDERS: Visit Provider Anesthesiology Pain Medicine | DX: M54.59 Other low back pain (principal); G89.29 Other chronic pain | CPT/HCPCS: 97110; 97112; 97161; 97530 ==

== ENCOUNTER → 2025-02-09 14:26 | Outpatient (BNVA) | payer MEDICARE, SELFPAY | PROVIDERS: PCP Registered Nurse; Visit Provider Anesthesiology Pain Medicine | DX: M48.062 Spinal stenosis, lumbar region with neurogenic claudication (principal); M54.50 Low back pain, unspecified; G89.29 Other chronic pain | CPT/HCPCS: 99214 ==

== ENCOUNTER 2025-02-26 05:00 | Outpatient (RCR) | payer MEDICARE, SELFPAY | END 2025-03-28 23:59 | disposition home or self-care (01) | LOC: WPT 05:00 | PROVIDERS: PCP Registered Nurse; Visit Provider Anesthesiology Pain Medicine | DX: M54.50 Low back pain, unspecified (principal); G89.29 Other chronic pain | CPT/HCPCS: 97110; 97112; 97530 ==

== ENCOUNTER → 2025-03-11 09:27 | Outpatient (BNVA) | payer MEDICARE, SELFPAY | PROVIDERS: PCP Registered Nurse; Visit Provider Registered Nurse | DX: M79.673 Pain in unspecified foot (principal) | CPT/HCPCS: 84550; 85025 ==

== ENCOUNTER 2025-03-29 06:30 | Outpatient (RCR) | payer MEDICARE, SELFPAY | END 2025-04-27 23:59 | disposition home or self-care (01) | LOC: WPT 06:30 | PROVIDERS: PCP Registered Nurse; Visit Provider Anesthesiology Pain Medicine | DX: M54.50 Low back pain, unspecified (principal); G89.29 Other chronic pain | CPT/HCPCS: 97110; 97112; 97530 ==

== ENCOUNTER → 2025-04-13 09:39 | Outpatient (BNVA) | payer MEDICARE, SELFPAY | PROVIDERS: PCP Registered Nurse; Visit Provider Anesthesiology Pain Medicine | DX: M48.062 Spinal stenosis, lumbar region with neurogenic claudication (principal); M54.50 Low back pain, unspecified; G89.29 Other chronic pain | CPT/HCPCS: 99214 ==

== ENCOUNTER 2025-04-21 15:34 | Outpatient (CLI) | payer MEDICARE, SELFPAY ==
--- NOTE | 2025-04-21 16:00 | US_ITS ---
WS: [id number] ULTRASOUND SOFT TISSUES LEFT cervical chain. HISTORY: R22.1 - Localized swelling, mass and lump, neck COMPARISON: None available. TECHNIQUE: 2-D and color Doppler imaging is submitted. Ultrasound directed to the LEFT neck at the palpable abnormality site. No mass identified. No cystic or solid mass. No adenopathy. US/US soft tissue head neck [id number] IMPRESSION: Negative ultrasound LEFT cervical chain.
== END 2025-04-21 15:35 | disposition home or self-care (01) ==
LOC: RAD 15:36
PROVIDERS: PCP Registered Nurse; Visit Provider Registered Nurse
DX: R22.1 Localized swelling, mass and lump, neck (principal)
CPT/HCPCS: 76536

== ENCOUNTER → 2025-06-30 13:55 | Outpatient (BNVA) | payer MEDICARE, SELFPAY | PROVIDERS: PCP Registered Nurse; Visit Provider Internal Medicine | DX: I25.10 Atherosclerotic heart disease of native coronary artery without angina pectoris (principal); I10 Essential (primary) hypertension; Z95.1 Presence of aortocoronary bypass graft; Z87.891 Personal history of nicotine dependence | CPT/HCPCS: 99214 ==

== ENCOUNTER → 2025-07-01 08:36 | Outpatient (BNVA) | payer MEDICARE, SELFPAY | PROVIDERS: PCP Registered Nurse; Visit Provider Internal Medicine | DX: I25.10 Atherosclerotic heart disease of native coronary artery without angina pectoris (principal); I10 Essential (primary) hypertension; R42 Dizziness and giddiness | CPT/HCPCS: 80053; 80061; 85025 ==

== ENCOUNTER → 2025-07-28 15:13 | Outpatient (BNVA) | payer MEDICARE, SELFPAY | PROVIDERS: PCP Registered Nurse; Visit Provider Orthopaedic Surgery | DX: M48.062 Spinal stenosis, lumbar region with neurogenic claudication (principal) | CPT/HCPCS: 72110; 99203 ==

== ENCOUNTER 2025-07-30 11:49 | Outpatient (CLI) | payer MEDICARE, SELFPAY ==
--- NOTE | 2025-07-30 12:00 | USCV_ITS ---
Mendoza Montiel Age: 85 Gender: M : 1940 Exam Date: 07/30/2025 12:23 Ordering Phys: Eugene Patel M.D ([email or web address]) Technologist: [place] [facility] [place]: sob cp BP: 120 / 70 HR: 248 Rhythm: Sinus Technical Quality: Adequate MEASUREMENTS (Male / Female) Normal Values 2D ECHO LV Diastolic Diameter PLAX 4.4 cm 4.2 - 5.9 / 3.9 - 5.3 cm IVS Diastolic Thickness 1.6 cm 0.6 - 1.0 / 0.6 - 0.9 cm IVS Systolic Thickness 1.4 cm LVPW Diastolic Thickness 1.5 cm 0.6 - 1.0 / 0.6 - 0.9 cm LVPW Systolic Thickness 2.0 cm LVOT Diameter 2.2 cm LV Ejection Fraction 2D Teich 47.5 % LV Ejection Fraction MOD 4C 58.4 % LV Ejection Fraction MOD 2C 50.1 % LV Ejection Fraction 2C AL 51.8 % LA Diameter 3.9 cm RA Systolic Volume 4C AL 39.2 ml RA Systolic Volume 4C MOD 39.2 ml LA Sys Volume AL 60.3 cm cubed LA Sys Volume Index AL 31.1 cm cubed/m squared Aorta at Sinotubular Diameter 2.8 cm M-MODE LA Ao Ratio MM 0.9 AV Cusp Separation MM 1.1 cm DOPPLER AV Peak Velocity 227.5 cm/s LVOT Peak Velocity 39.0 cm/s AV Area Cont Eq vti 0.7 cm squared AV Area Cont Eq pk 0.6 cm squared MV Peak Velocity 133.0 cm/s MV Area PHT 4.3 cm squared Mitral E to A Ratio 0.8 TV Peak Velocity 280.7 cm/s TR Peak Velocity 294.0 cm/s TR Peak Gradient 34.6 mmHg TV Peak E Velocity 99.0 cm/s PV Peak Velocity 104.0 cm/s FINDINGS Left Ventricle Normal left ventricular size and systolic function, EF 50-55%. No regional wall motion abnormalities. Grade 1 diastolic dysfunction Right Ventricle Normal in size and function Right Atrium Normal in size Left Atrium Normal in size IA Septum Grossly normal Mitral Valve Structurally normal valve. Moderate mitral regurgitation Aortic Valve Aortic valve is thickened. Moderate aortic stenosis with mean gradient of 10 mmHg ( based on gradient, has mild aortic stenosis but visually appears more significant). Tricuspid Valve Mild tricuspid regurgitation. Pulmonary artery systolic pressure is normal. Pulmonic Valve Not well visualized Pericardium Normal Aorta Normal in size IVC Not well visualized CONCLUSIONS L distal function is normal with EF of 50 to 55%. Grade 1 diastolic dysfunction. Moderate mitral regurgitation Moderate aortic stenosis. Mild tricuspid regurgitation Eugene Patel MD (Electronically Signed) Final Date: 02 August 2025 14:24 S
== END 2025-07-30 11:50 | disposition home or self-care (01) ==
LOC: RAD 11:54
PROVIDERS: PCP Registered Nurse; Visit Provider Internal Medicine
DX: R06.02 Shortness of breath (principal); I50.30 Unspecified diastolic (congestive) heart failure; I34.0 Nonrheumatic mitral (valve) insufficiency; I35.0 Nonrheumatic aortic (valve) stenosis; I36.1 Nonrheumatic tricuspid (valve) insufficiency
CPT/HCPCS: 93306

== ENCOUNTER → 2025-08-03 08:35 | Outpatient (BNVA) | payer MEDICARE, SELFPAY | PROVIDERS: PCP Registered Nurse; Referring Provider Orthopaedic Surgery; Visit Provider Anesthesiology Pain Medicine | DX: M48.062 Spinal stenosis, lumbar region with neurogenic claudication (principal); G89.29 Other chronic pain | CPT/HCPCS: 99214 ==

== ENCOUNTER → 2025-08-19 09:50 | Outpatient (BNVA) | payer MEDICARE, SELFPAY | PROVIDERS: PCP Registered Nurse; Visit Provider Anesthesiology Pain Medicine | DX: M54.16 Radiculopathy, lumbar region (principal) | CPT/HCPCS: 64483; 64484; J1100; J3490; J9999 ==

== ENCOUNTER → 2025-09-01 08:03 | Outpatient (BNVA) | payer MEDICARE, SELFPAY | PROVIDERS: PCP Registered Nurse; Visit Provider Anesthesiology Pain Medicine | DX: M48.062 Spinal stenosis, lumbar region with neurogenic claudication (principal); G89.29 Other chronic pain | CPT/HCPCS: 99214 ==

== ENCOUNTER → 2025-10-13 10:42 | Outpatient (BNVA) | payer MEDICARE, SELFPAY | PROVIDERS: PCP Registered Nurse; Visit Provider Orthopaedic Surgery | DX: Z01.818 Encounter for other preprocedural examination (principal); M48.062 Spinal stenosis, lumbar region with neurogenic claudication | CPT/HCPCS: 80053; 81001; 85025; 87086; 99214 ==